=== PATIENT | female | born 1960 | race African-American/Black ===

== ENCOUNTER 2018-08-16 16:29 | Emergency (ER) | payer SELFPAY ==
[~2018-08-16 16:29] MED LIST: Sodium Chloride 0.9% 100 ML ONE; cefTRIAXone\\ROCEPHIN 2 GM VIAL ONE
--- NOTE | 2018-08-16 17:10 | RAD ---
LEFT FOOT: 08/16/18 Three views. HISTORY: Injury to foot. Stepped on foreign object. Small enthesophyte from the plantar calcaneus and mild enthesophyte from the posterior calcaneus. Tarsals and metatarsals are intact. No osseous or soft tissue abnormality identified. IMPRESSION: No acute findings. POS: [facility]
== END 2018-08-16 17:20 | disposition home or self-care (01) ==
LOC: NAV ERS 16:29
DX: M79.672 Pain in left foot (principal); L85.9 Epidermal thickening, unspecified
CPT/HCPCS: J0696; J1642; J7050

== ENCOUNTER 2022-02-19 15:45 | Emergency (ER) | payer SELFPAY | END 2022-02-19 16:26 | disposition home or self-care (01) | LOC: NAV ERS 15:45 | DX: L20.9 Atopic dermatitis, unspecified (principal) | CPT/HCPCS: 99282 ==